=== PATIENT | female | born 1975 | race Caucasian/White ===

== ENCOUNTER 2020-05-12 11:01 | Outpatient (CLI) | payer BC, SELFPAY ==
[2020-05-12 12:15] LABS: Hematocrit 43.5 % (37.0-47.0); Hemoglobin 14.6 g/dL (12.0-15.0); Mean Corpuscular HGB Conc 33.6 g/dl (32-36); Mean Corpuscular Hemoglobin 31.1 pg (26-34); Mean Corpuscular Volume 92.6 fl (80-100); Mean Platelet Volume 10.9 fl (7.4-10.4); Platelet Count Result 247 k/mm3 (150-375); Red Cell Distribution Width 13.1 % (11.5-14.5); White Blood Count 7.3 K/mm3 (4.5-10.0)
[2020-05-12 12:43] LABS: Beta HCG Quantitative < 2.39 mIU/ML
[2020-05-12 13:05] LABS: Free T4 Free Thyroxine 1.31 ng/mL (0.78-2.19)
[2020-05-12 13:19] LABS: Thyroid Stimulating Hormone Reflex 0.838 uIU/mL (0.465-4.68)
[2020-05-17 07:05] LABS: Prolactin 7.9 ng/mL (***)
== END 2020-05-12 11:02 | disposition home or self-care (01) ==
LOC: ANHLAB 11:03
PROVIDERS: PCP Family Medicine; Visit Provider Obstetrics & Gynecology
DX: N93.9 Abnormal uterine and vaginal bleeding, unspecified (principal)
CPT/HCPCS: 36415; 84146; 84439; 84443; 84702; 85027

== ENCOUNTER → 2020-05-18 10:42 | Outpatient (CLI) | payer BC, SELFPAY ==
--- NOTE | ~2020-05-18 | US_ITS ---
EXAMINATION: US pelvic complete w TV EXAM DATE: 05/18/2020 11:06 INDICATION: N93.9 - Abnormal uterine and vaginal bleeding, unspecified . TECHNIQUE: Pelvic transabdominal and transvaginal sonogram was performed. There are multiple graysca le and Doppler images available for interpretation. There is no prior study for comparison. FINDINGS: Uterus measures 10.5 x 4.8 x 6.1 cm, is anteverted with possible 7 mm fibroid posteriorly. Endometrial stripe measures 13 mm, within normal limits. There is no free pelvic fluid. Right adnexa: The ovary measures 1.8 x 1.6 x 2.1 cm and is morphologically normal. Ovarian vascular f low confirmed. Left adnexa: The ovary measures 3.7 x 3.2 x 2.7 cm and is morphologically normal. Ovarian vascular fl ow confirmed. IMPRESSION: 1. Possible small fibroid. Reviewed, dictated and finalized at location A. S NOTES ADMINISTRATOR IMPRESSION: 1. Possible small fibroid.
== END ==
PROVIDERS: Visit Provider Obstetrics & Gynecology
DX: N93.9 Abnormal uterine and vaginal bleeding, unspecified (principal); D25.9 Leiomyoma of uterus, unspecified
CPT/HCPCS: 76830; 76856

== ENCOUNTER 2022-03-08 08:58 | Outpatient (CLI) | payer BC, SELFPAY ==
[2022-03-08 11:30] LABS: Kit Draw Collected
== END 2022-03-08 08:59 | disposition home or self-care (01) ==
LOC: ANHGOSHLAB 09:02
PROVIDERS: PCP Family Medicine; Visit Provider Nurse Practitioner
DX: Z00.00 Encounter for general adult medical examination without abnormal findings (principal); R53.83 Other fatigue; E53.8 Deficiency of other specified B group vitamins; E55.9 Vitamin D deficiency, unspecified
CPT/HCPCS: 36415

== ENCOUNTER 2023-05-08 09:19 | Outpatient (CLI) | payer BC, SELFPAY ==
[2023-05-08 19:20] LABS: Alanine Aminotransferase 15 U/L (6-35); Alkaline Phosphatase 43 U/L (38-126); Anion Gap 8 mmol/L (8-16); Aspartate Amino Transferase 29 U/L (14-36); Bilirubin,Total 1.1 mg/dL (0.2-1.3); Blood Urea Nitrogen 19 mg/dL (7-17); Carbon Dioxide 27 mmol/L (22-30); Chloride 102 mmol/L (98-107); Cholesterol 212 mg/dL (0-200); Estimated Glomerular Filt Rate > 60; Glucose 70 mg/dL (65-110); HDL Direct 71 mg/dL; Potassium 4.6 mmol/L (3.4-5.0); Sodium 137 mmol/L (137-145); Triglycerides 87 mg/dL (<150)
[2023-05-08 19:30] LABS: LDL Cholesterol Direct 108 mg/dL
[2023-05-08 20:10] LABS: Basophils Percent Auto 0.6 % (0.2-1.2); Eosinophils Absolute Auto 0.2 K/mm3 (0-0.3); Eosinophils Percent Auto 3.7 % (0-4.4); Hematocrit 42.8 % (37.0-47.0); Hemoglobin 13.4 g/dL (12.0-15.0); Immature Granulocyte Absolute 0.01 K/mm3 (0.00-0.031); Immature Granulocyte Percent A 0.2 % (0-0.5); Lymphocytes Absolute Auto 1.59 K/mm3 (0.9-3.2); Lymphocytes Percent Auto 25.8 % (18.3-44.2); Mean Corpuscular HGB Conc 31.3 g/dl (32-36); Mean Corpuscular Hemoglobin 30.7 pg (26-34); Mean Corpuscular Volume 97.9 fl (80-100); Mean Platelet Volume 11.3 fl (7.4-10.4); Monocytes Absolute Auto 0.6 K/mm3 (0.1-0.6); Monocytes Percent Auto 10.4 % (2.6-8.5); Neutrophils Absolute Auto 3.7 K/mm3 (1.3-6.7); Neutrophils Percent Auto 59.3 % (45.5-73.1); Platelet Count Result 244 k/mm3 (150-375); Red Blood Count 4.37 M/mm3 (4.2-5.4); Red Cell Distribution Width 13.4 % (11.5-14.5); White Blood Count 6.2 K/mm3 (4.5-10.0)
[2023-05-11 23:05] LABS: Vitamin D 1,25 (OH)2 Total 50 pg/mL (18-72); Vitamin D2 1,25 (OH)2 <8 pg/mL; Vitamin D3 1,25 (OH)2 50 pg/mL
== END 2023-05-08 09:20 | disposition home or self-care (01) ==
LOC: ANHGOSHLAB 09:20
PROVIDERS: PCP Family Medicine; Visit Provider Nurse Practitioner Family
DX: Z00.00 Encounter for general adult medical examination without abnormal findings (principal); E53.9 Vitamin B deficiency, unspecified; E55.9 Vitamin D deficiency, unspecified; J45.20 Mild intermittent asthma, uncomplicated; N92.6 Irregular menstruation, unspecified
CPT/HCPCS: 36415; 80053; 80061; 82607; 82652; 84443; 85025